=== PATIENT | female | born 2000 | race Hispanic/Latino ===

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

== ENCOUNTER 2018-01-18 19:55 | Emergency (ER) | payer BC ==
[2018-01-18 19:55] VITALS: BMI 29.9
[2018-01-18 20:03] VITALS: BP 121/73; PULSE 82; RESP 16; TEMP 97.9; O2SAT 98
--- NOTE | 2018-01-18 20:57 | ED PDOC ---
HPI: Psych/Substance Abuse Time Seen by Provider: 01/18/18 20:34 Chief Complaint (Nursing): Anxiety Chief Complaint (Provider): Anxiety History Per: Patient History/Exam Limitations: no limitations Onset/Duration Of Symptoms: Days Current Symptoms Are (Timing): Still Present Additional Complaint(s): 17 y/o female with no significant PMHx presents to the [facility] for a little more than a year. Patient reports anxiety has worsened over the last month and reports of having high levels of stress as a [employer] student. Patient states she has been having trouble with school work and is not doing as well as she'd like. Patient attempted school counseling about one month ago and states she doesn't feel like it has helped. Denies suicidal ideation, homicidal ideation, hallucinations, drug or alcohol use. Patient states she began feeling really overwhelmed today thus prompting today's visit. PMD: In [place], [place] Past Medical History Reviewed: Historical Data, Nursing Documentation, Vital Signs Vital Signs: Last Vital Signs Temp 97.9 F 01/18/18 20:01 Pulse 82 01/18/18 20:01 Resp 16 01/18/18 20:01 BP 121/73 01/18/18 20:01 Pulse Ox 98 01/18/18 20:01 - Medical History PMH: No Chronic Diseases - Surgical History Surgical History: No Surg Hx - Family History Family History: States: Unknown Family Hx - Social History Current smoker - smoking cessation education provided: No Alcohol: None Drugs: Denies - Home Medications Home Medications: Ambulatory Orders Medication Instructions Recorded Ibuprofen [Motrin Tab] 600 mg PO QID PRN #20 tab 05/15/17 - Allergies Allergies/Adverse Reactions: Allergies Allergy/AdvReac Type Severity Reaction Status Date / Time No Known Allergies Allergy Verified 01/18/18 20:04 Review of Systems ROS Statement: Except As Marked, All Systems Reviewed And Found Negative Psych: Positive for: Anxiety Physical Exam - Reviewed Nursing Documentation Reviewed: Yes Vital Signs Reviewed: Yes - Physical Exam Appears: Positive for: Non-toxic, In Acute Distress (psychiatric distress, tearful) Head Exam: Positive for: ATRAUMATIC, NORMOCEPHALIC Skin: Positive for: Warm, Dry Eye Exam: Positive for: EOMI, PERRL, Conjunctival injection ENT: Negative for: Pharyngeal Erythema, Tonsillar Exudate Neck: Positive for: Painless ROM, Supple Cardiovascular/Chest: Positive for: Regular Rate, Rhythm. Negative for: Murmur Respiratory: Positive for: Normal Breath Sounds. Negative for: Respiratory Distress Gastrointestinal/Abdominal: Positive for: Soft. Negative for: Tenderness Back: Positive for: Normal Inspection. Negative for: Decreased ROM Extremity: Positive for: Normal ROM. Negative for: Deformity Lymphatic: Negative for: Adenopathy Neurologic/Psych: Positive for: Alert, Oriented (x3), Mood/Affect (Anxious and Sad), Other (Normal thought process and concentration). Negative for: Tatiana r/Sensory Deficits - ECG O2 Sat by Pulse Oximetry: 98 (RA) Pulse Ox Interpretation: Normal Medical Decision Making Medical Decision Making: Time: 2048 Impression: Severe Anxiety Plan: -- Urine Drug Screen -- Crisis Evaluation -- ED Urine -- ED Urine Dipstick Evaluated by CW and pt is stable for dc. ___ Scribe Attestation: Documented by Fabio Kimbrough, acting as a scribe Yohan Dennis MD. Provider Scribe Attestation: All medical record entries made by the Scribe were at my direction and personally dictated by me. I have reviewed the chart and agree that the record accurately reflects my personal performance of the history, physical exam, medical decision making, and the department course for this patient. I have also personally directed, reviewed, and agree with the discharge instructions and disposition. Disposition - Clinical Impression Clinical Impression: Anxiety - Disposition Disposition: Routine/Home Disposition Time: 22:00 Condition: STABLE Additional Instructions: FOLLOW UP INSTRUCTED BY THE P[facility]. Instructions: Anxiety, Adult (DC) Forms: [facility] ED School/Work Excuse
[2018-01-18 22:36] LABS: BARBITURATES, UR NEGATIVE (NEGATIVE); BENZODIAZEPINES, UR NEGATIVE (NEGATIVE); OPIATES, UR NEGATIVE (NEGATIVE); PHENCYCLIDINE, UR NEGATIVE (NEGATIVE)
== END 2018-01-18 22:30 | disposition home or self-care (01) ==
LOC: H.ER 19:55
DX: F41.9 Anxiety disorder, unspecified (principal)
CPT/HCPCS: 81025; 99282; G0480